=== PATIENT | male | born 1945 | race Hispanic/Latino ===

== ENCOUNTER 2018-01-14 12:55 | Inpatient (IN) | payer OTHER ==
[~2018-01-14] VITALS: Ht 172.7 cm; Wt 87.4 kg
[~2018-01-14 12:55] MED LIST: APIX5TAB PO; ASPI-555 PO; FURO40TA7 PO; GLIP10TA9 PO; LISI-617 PO; METO50TA18 PO; POTA8TAB7 PO; PRAV40TA3 PO; SITA1TAB6 PO
[2018-01-14] MEDS ORDERED: SODIUM CHLORIDE 0.9% 1000ML 1,000 ML IV ONE ×2 (13:43→16:12)
[2018-01-14 13:47] LABS: BASOPHILS % (AUTO) 0.2 % (0.0-5.0); HEMATOCRIT 31.8 % (42-54); LYMPHOCYTES % (AUTO) 4.6 % (21.0-51.0); MEAN CORPUSCULAR HEMOGLOBIN 31.4 pg (27.0-33.0); MEAN CORPUSCULAR HGB CONC 34.3 g/dL (32.0-36.0); MEAN CORPUSCULAR VOLUME 91.6 fL (79-99); MONOCYTES % (AUTO) 0.3 % (3.0-13.0); NEUTROPHILS % (AUTO) 94.9 % (40.0-77.0); PLATELET COUNT (AUTO) 289 K/uL (130-400); RED BLOOD CELL COUNT(AUTO) 3.47 MIL/uL (4.50-6.20); RED CELL DISTRIBUTION WIDTH 18.1 % (11.0-15.5)
[2018-01-14] MEDS ORDERED: MORPHINE SULFATE 2 MG/ML 1ML SYG ONE (13:48)
[2018-01-14 13:58] LABS: WHITE BLOOD COUNT (AUTO) 43.6 K/uL (4.8-10.8)
[2018-01-14 14:04] LABS: ALBUMIN 2.7 g/dL (3.5-5.0); BILIRUBIN,TOTAL 0.3 mg/dL (0.2-1.0); CREATININE 6.4 mg/dL (0.5-1.5); POTASSIUM 4.2 mmol/L (3.5-5.1); TOTAL PROTEIN, SERUM 6.3 g/dL (6.0-8.3)
[2018-01-14 14:24] LABS: BAND NEUTROPHILS % (MANUAL) 4 % (0-2); LYMPHOCYTES % (MANUAL) 4 % (22-44); MAN.DIFF COMMENT-IMPRESSION MANUAL DIFFERENTIAL; MONOCYTES % (MANUAL) 9 % (2-9); SEGMENTED NEUTROPHILS % 83 % (40-70)
[2018-01-14] MEDS: SODIUM CHLORIDE 0.9% 1000ML 1,000 ML IV SCH (14:35)
[2018-01-14] MEDS ORDERED: GUAIFENESIN-DM 200/20 MG 10 ML PO PRN (14:45)
[2018-01-14] MEDS ORDERED: NITROGLYCERIN 0.4 MG SL TAB SL PRN (14:45)
[2018-01-14] MEDS ORDERED: ACETAMINOPHEN-CODEINE 300/30MG TAB PO PRN (14:45)
[2018-01-14] MEDS ORDERED: CEFTRIAXONE 1GM/D5W 50ML 50 ML IV SCH (14:45)
[2018-01-14] MEDS ORDERED: MORPHINE SULFATE 2 MG/ML 1ML SYG IV PRN (14:45)
[2018-01-14] MEDS ORDERED: HYDRALAZINE HCL 20 MG/ML VIAL IV PRN (14:45)
[2018-01-14] MEDS ORDERED: ACETAMINOPHEN 325 MG TAB PO PRN ×2 (14:45)
[2018-01-14] MEDS ORDERED: SODIUM CHLORIDE 0.9% 1000ML 1,000 ML IV SCH (14:45)
[2018-01-14] MEDS ORDERED: LACTULOSE 20 GM/30 ML UDCUP PO PRN (14:45)
[2018-01-14] MEDS ORDERED: MAG HYDROX/AL HYDROX/SIMETH ES 30 ML SUSP UDCUP PO PRN (14:45)
[2018-01-14] MEDS ORDERED: ONDANSETRON HCL 4 MG/2 ML VIAL IV PRN (14:45)
[2018-01-14] MEDS: CEFTRIAXONE SODIUM 1 GM IVP SCH (15:00)
[2018-01-14 19:56] VITALS: BP 89/46
[2018-01-14] MEDS: METRONIDAZOLE 500MG/100ML BAG 100 ML IV SCH (21:14)
[2018-01-14 23:19] VITALS: BP 113/47
[2018-01-15] MEDS: SODIUM CHLORIDE 0.9% 1000ML 1,000 ML IV SCH ×3 (00:35→16:25)
[2018-01-15 03:40] VITALS: BP 125/50
[2018-01-15 04:32] LABS: MEAN CORPUSCULAR HEMOGLOBIN 31.2 pg (27.0-33.0); MEAN CORPUSCULAR HGB CONC 34.1 g/dL (32.0-36.0); MEAN CORPUSCULAR VOLUME 91.5 fL (79-99); NUCLEATED RED BLOOD CELLS 0.1 % (0.0-0.19); PLATELET COUNT (AUTO) 209 K/uL (130-400); RED BLOOD CELL COUNT(AUTO) 2.95 MIL/uL (4.50-6.20); RED CELL DISTRIBUTION WIDTH 17.6 % (11.0-15.5); WHITE BLOOD COUNT (AUTO) 22.8 K/uL (4.8-10.8)
[2018-01-15 04:54] LABS: CREATININE 4.4 mg/dL (0.5-1.5); POTASSIUM 3.5 mmol/L (3.5-5.1)
[2018-01-15] MEDS: METRONIDAZOLE 500MG/100ML BAG 100 ML IV SCH ×3 (06:22→21:05)
[2018-01-15 07:00] VITALS: BP 128/53
[2018-01-15] MEDS: FAMOTIDINE/PF 20 MG/2 ML VIAL IV SCH (08:36)
[2018-01-15] MEDS ORDERED: ENOXAPARIN SODIUM 1 MG/KG SQ SCH (09:00)
[2018-01-15] MEDS ORDERED: ENOXAPARIN SODIUM 80 MG/0.8 ML SQ SCH (09:15)
[2018-01-15] MEDS: ASPIRIN 81 MG EC TAB PO SCH (10:38)
[2018-01-15 11:00] VITALS: BP 96/51
[2018-01-15] MEDS: INSULIN HUMULIN R 100 UNIT/ML 3ML SQ SCH ×3 (11:30→21:00)
[2018-01-15 16:00] VITALS: BP 104/43
[2018-01-15] MEDS: CEFTRIAXONE SODIUM 1 GM IVP SCH (16:25)
[2018-01-15] MEDS: METOPROLOL TARTRATE 25 MG TAB PO SCH (17:37)
[2018-01-15 19:29] VITALS: BP 126/61
[2018-01-15] MEDS: ATORVASTATIN CALCIUM 10 MG TABLET PO SCH (21:05)
[2018-01-15 23:05] VITALS: BP 133/55
[2018-01-16 03:23] VITALS: BP 132/58
[2018-01-16] MEDS: METRONIDAZOLE 500MG/100ML BAG 100 ML IV SCH ×3 (05:14→21:05)
[2018-01-16] MEDS: SODIUM CHLORIDE 0.9% 1000ML 1,000 ML IV SCH (05:41)
[2018-01-16] MEDS: INSULIN HUMULIN R 100 UNIT/ML 3ML SQ SCH ×4 (06:17→21:04)
[2018-01-16 06:54] LABS: HEMATOCRIT 25.6 % (42-54); MEAN CORPUSCULAR HEMOGLOBIN 33.1 pg (27.0-33.0); MEAN CORPUSCULAR HGB CONC 36.2 g/dL (32.0-36.0); MEAN CORPUSCULAR VOLUME 91.6 fL (79-99); PLATELET COUNT (AUTO) 152 K/uL (130-400); RED BLOOD CELL COUNT(AUTO) 2.79 MIL/uL (4.50-6.20); RED CELL DISTRIBUTION WIDTH 17.7 % (11.0-15.5); WHITE BLOOD COUNT (AUTO) 16.5 K/uL (4.8-10.8)
[2018-01-16 07:00] VITALS: BP 135/62
[2018-01-16 07:01] LABS: CREATININE 1.5 mg/dL (0.5-1.5)
[2018-01-16 07:03] LABS: POTASSIUM 2.8 mmol/L (3.5-5.1)
[2018-01-16] MEDS ORDERED: POTASSIUM CHLORIDE 10% ELIXIR 20 MEQ/15 ML UDCUP PO PRN (08:30)
[2018-01-16] MEDS ORDERED: LIDOCAINE HCL-MPF 1% 2ML VIAL IVP PRN (08:30)
[2018-01-16] MEDS: ASPIRIN 81 MG EC TAB PO SCH (09:00)
[2018-01-16] MEDS: METOPROLOL TARTRATE 25 MG TAB PO SCH ×2 (09:36→19:04)
[2018-01-16] MEDS: APIXABAN 5 MG TABLET PO SCH ×2 (09:36→21:04)
[2018-01-16] MEDS: FAMOTIDINE/PF 20 MG/2 ML VIAL IV SCH (09:36)
[2018-01-16 11:00] VITALS: BP 150/56
[2018-01-16] MEDS: MAGNESIUM 2GM PREMIX 50ML 50 ML IV SCH (12:06)
[2018-01-16] MEDS: CEFTRIAXONE SODIUM 1 GM IVP SCH (15:59)
[2018-01-16 16:00] VITALS: BP 152/90
[2018-01-16 19:09] VITALS: BP 146/80
[2018-01-16] MEDS: ATORVASTATIN CALCIUM 10 MG TABLET PO SCH (21:04)
[2018-01-16 23:20] VITALS: BP 146/70
[2018-01-17 03:00] VITALS: BP 116/72
[2018-01-17] MEDS: METRONIDAZOLE 500MG/100ML BAG 100 ML IV SCH ×2 (05:14→13:56)
[2018-01-17 05:59] LABS: MEAN CORPUSCULAR HGB CONC 33.7 g/dL (32.0-36.0); PLATELET COUNT (AUTO) 155 K/uL (130-400); RED BLOOD CELL COUNT(AUTO) 2.93 MIL/uL (4.50-6.20); RED CELL DISTRIBUTION WIDTH 17.8 % (11.0-15.5); WHITE BLOOD COUNT (AUTO) 23.1 K/uL (4.8-10.8)
[2018-01-17 06:19] LABS: POTASSIUM 2.8 mmol/L (3.5-5.1)
[2018-01-17] MEDS: INSULIN HUMULIN R 100 UNIT/ML 3ML SQ SCH ×4 (06:30→21:27)
[2018-01-17] MEDS: POTASSIUM CHLORIDE 20MEQ/100ML 100 ML IV PRN ×3 (06:41→22:49)
[2018-01-17 08:00] VITALS: BP 130/60
[2018-01-17] MEDS ORDERED: PHARMACY COMMUNICATION MISC SCH (08:15)
[2018-01-17] MEDS ORDERED: COMPOUND PO MISCELLANEOUS 1 EACH MISC MISC PRN (08:30)
[2018-01-17] MEDS ORDERED: NON-FORMULARY MEDICATION 1 EACH (Potassium Chloride 8 MEQ) PO SCH (09:00)
[2018-01-17] MEDS ORDERED: POTASSIUM CHLORIDE 8 MEQ PO SCH (09:00)
[2018-01-17] MEDS: METOPROLOL TARTRATE 25 MG TAB PO SCH ×2 (09:24→16:40)
[2018-01-17] MEDS: APIXABAN 5 MG TABLET PO SCH ×2 (09:24→20:58)
[2018-01-17] MEDS: POTASSIUM CHLORIDE 20 MEQ ERTAB PO PRN ×3 (09:25→21:18)
[2018-01-17] MEDS: FAMOTIDINE/PF 20 MG/2 ML VIAL IV SCH (09:25)
[2018-01-17] MEDS: ASPIRIN 81 MG EC TAB PO SCH (09:25)
[2018-01-17] MEDS: VANCOMYCIN 250MG/5ML ORAL SOLUTION 40ML PO SCH ×6 (09:26→20:59)
[2018-01-17 11:49] VITALS: BP 132/67
[2018-01-17 16:00] VITALS: BP 140/97
[2018-01-17] MEDS: MAGNESIUM 2GM PREMIX 50ML 50 ML IV SCH (20:58)
[2018-01-17] MEDS: ATORVASTATIN CALCIUM 10 MG TABLET PO SCH (20:58)
[2018-01-17 23:16] VITALS: BP 144/65
[2018-01-18] VITALS (7 sets, daily range): BP systolic 145–169; BP diastolic 62–85
[2018-01-18] MEDS: POTASSIUM CHLORIDE 20 MEQ ERTAB PO PRN ×5 (00:06→19:47)
[2018-01-18] MEDS: POTASSIUM CHLORIDE 20MEQ/100ML 100 ML IV PRN (01:19)
[2018-01-18] MEDS: VANCOMYCIN 250MG/5ML ORAL SOLUTION 40ML PO SCH ×8 (03:08→19:46)
[2018-01-18 04:45] LABS: HEMATOCRIT 27.3 % (42-54); MEAN CORPUSCULAR HEMOGLOBIN 33.6 pg (27.0-33.0); MEAN CORPUSCULAR HGB CONC 36.2 g/dL (32.0-36.0); MEAN CORPUSCULAR VOLUME 92.6 fL (79-99); PLATELET COUNT (AUTO) 150 K/uL (130-400); RED BLOOD CELL COUNT(AUTO) 2.95 MIL/uL (4.50-6.20); RED CELL DISTRIBUTION WIDTH 17.9 % (11.0-15.5); WHITE BLOOD COUNT (AUTO) 19.2 K/uL (4.8-10.8)
[2018-01-18 04:57] LABS: CREATININE 0.7 mg/dL (0.5-1.5); MAGNESIUM 1.5 mg/dL (1.80-2.40); PHOSPHORUS 1.4 mg/dL (2.5-4.9); POTASSIUM 3.4 mmol/L (3.5-5.1)
[2018-01-18] MEDS: INSULIN HUMULIN R 100 UNIT/ML 3ML SQ SCH ×4 (06:35→20:27)
[2018-01-18] MEDS: MAGNESIUM 2GM PREMIX 50ML 50 ML IV SCH ×2 (06:38→19:45)
[2018-01-18] MEDS ORDERED: POTASSIUM PHOS 15 mMOL+NS250ML 250 ML IV SCH (08:00)
[2018-01-18] MEDS: FAMOTIDINE/PF 20 MG/2 ML VIAL IV SCH (08:19)
[2018-01-18] MEDS: APIXABAN 5 MG TABLET PO SCH ×2 (08:19→19:47)
[2018-01-18] MEDS: METOPROLOL TARTRATE 25 MG TAB PO SCH (08:19)
[2018-01-18] MEDS: ASPIRIN 81 MG EC TAB PO SCH (08:19)
[2018-01-18] MEDS: **HM** JANUMET 50-1000MG PO SCH (16:30)
[2018-01-18] MEDS: METOPROLOL TARTRATE 50 MG TAB PO SCH (17:50)
[2018-01-18 18:23] LABS: MAGNESIUM 1.5 mg/dL (1.80-2.40); POTASSIUM 3.5 mmol/L (3.5-5.1)
[2018-01-18] MEDS: ATORVASTATIN CALCIUM 10 MG TABLET PO SCH (19:47)
[2018-01-19] MEDS: VANCOMYCIN 250MG/5ML ORAL SOLUTION 40ML PO SCH ×8 (03:48→21:20)
[2018-01-19 04:10] LABS: BASOPHILS % (AUTO) 0.2 % (0.0-5.0); EOSINOPHILS % (AUTO) 0.1 % (0.0-8.0); HEMATOCRIT 28.5 % (42-54); LYMPHOCYTES % (AUTO) 7.2 % (21.0-51.0); MEAN CORPUSCULAR HEMOGLOBIN 31.4 pg (27.0-33.0); MEAN CORPUSCULAR HGB CONC 33.9 g/dL (32.0-36.0); MEAN CORPUSCULAR VOLUME 92.5 fL (79-99); MONOCYTES % (AUTO) 4.5 % (3.0-13.0); NUCLEATED RED BLOOD CELLS 0.1 % (0.0-0.19); PLATELET COUNT (AUTO) 141 K/uL (130-400); RED BLOOD CELL COUNT(AUTO) 3.08 MIL/uL (4.50-6.20); RED CELL DISTRIBUTION WIDTH 18.5 % (11.0-15.5); WHITE BLOOD COUNT (AUTO) 19.8 K/uL (4.8-10.8)
[2018-01-19 04:16] VITALS: BP 162/75
[2018-01-19] MEDS: **HM** JANUMET 50-1000MG PO SCH ×2 (04:50→17:35)
[2018-01-19 05:06] LABS: CREATININE 0.8 mg/dL (0.5-1.5); MAGNESIUM 1.5 mg/dL (1.80-2.40); PHOSPHORUS 2.1 mg/dL (2.5-4.9); POTASSIUM 3.6 mmol/L (3.5-5.1)
[2018-01-19] MEDS: MAGNESIUM 2GM PREMIX 50ML 50 ML IV SCH ×3 (05:36→21:18)
[2018-01-19] MEDS: POTASSIUM CHLORIDE 20 MEQ ERTAB PO PRN ×2 (05:37→09:44)
[2018-01-19] MEDS: INSULIN HUMULIN R 100 UNIT/ML 3ML SQ SCH ×4 (05:46→21:29)
[2018-01-19 07:30] VITALS: BP 139/53
[2018-01-19] MEDS ORDERED: POTASSIUM PHOS 15 mMOL+NS250ML 250 ML IV SCH (08:30)
[2018-01-19] MEDS ORDERED: MAGNESIUM 2GM PREMIX 50ML 50 ML IV SCH (08:30)
[2018-01-19] MEDS: APIXABAN 5 MG TABLET PO SCH ×2 (09:42→21:17)
[2018-01-19] MEDS: FAMOTIDINE/PF 20 MG/2 ML VIAL IV SCH (09:42)
[2018-01-19] MEDS: ASPIRIN 81 MG EC TAB PO SCH (09:42)
[2018-01-19] MEDS: METOPROLOL TARTRATE 50 MG TAB PO SCH ×2 (09:43→17:36)
[2018-01-19] MEDS: POTASSIUM CHLORIDE 10 MEQ/TAB.SA PO SCH (09:47)
[2018-01-19] MEDS: LISINOPRIL 5 MG TABLET PO SCH ×2 (09:47→21:17)
[2018-01-19 11:00] VITALS: BP 123/84
[2018-01-19 16:00] VITALS: BP 132/62
[2018-01-19 19:00] VITALS: BP 151/60
[2018-01-19 20:41] LABS: MAGNESIUM 1.8 mg/dL (1.80-2.40); POTASSIUM 4.3 mmol/L (3.5-5.1)
[2018-01-19] MEDS: ATORVASTATIN CALCIUM 10 MG TABLET PO SCH (21:17)
[2018-01-19 23:00] VITALS: BP 181/75
[2018-01-20] MEDS: VANCOMYCIN 250MG/5ML ORAL SOLUTION 40ML PO SCH ×4 (02:42→08:21)
[2018-01-20 03:00] VITALS: BP_SYST 136; BP_SYST 163; BP_DIAS 76
[2018-01-20 04:21] LABS: HEMATOCRIT 24.7 % (42-54); MEAN CORPUSCULAR HEMOGLOBIN 31.9 pg (27.0-33.0); MEAN CORPUSCULAR HGB CONC 33.9 g/dL (32.0-36.0); MEAN CORPUSCULAR VOLUME 94.1 fL (79-99); NUCLEATED RED BLOOD CELLS 0.1 % (0.0-0.19); PLATELET COUNT (AUTO) 157 K/uL (130-400); RED BLOOD CELL COUNT(AUTO) 2.62 MIL/uL (4.50-6.20); RED CELL DISTRIBUTION WIDTH 18.6 % (11.0-15.5); WHITE BLOOD COUNT (AUTO) 22.4 K/uL (4.8-10.8)
[2018-01-20 04:28] LABS: CREATININE 0.8 mg/dL (0.5-1.5); MAGNESIUM 1.9 mg/dL (1.80-2.40); POTASSIUM 3.7 mmol/L (3.5-5.1)
[2018-01-20 04:37] LABS: B-TYPE NATRIURETIC PEPTIDE 1710 pg/mL (0-100)
[2018-01-20] MEDS: MAGNESIUM 2GM PREMIX 50ML 50 ML IV SCH (05:58)
[2018-01-20] MEDS: INSULIN HUMULIN R 100 UNIT/ML 3ML SQ SCH ×2 (05:59→11:30)
[2018-01-20] MEDS: **HM** JANUMET 50-1000MG PO SCH ×2 (07:30→08:36)
[2018-01-20 08:00] VITALS: BP 154/68
[2018-01-20] MEDS: APIXABAN 5 MG TABLET PO SCH (08:22)
[2018-01-20] MEDS: POTASSIUM CHLORIDE 10 MEQ/TAB.SA PO SCH (08:22)
[2018-01-20] MEDS: LISINOPRIL 5 MG TABLET PO SCH (08:24)
[2018-01-20] MEDS: FAMOTIDINE/PF 20 MG/2 ML VIAL IV SCH (08:24)
[2018-01-20] MEDS: METOPROLOL TARTRATE 50 MG TAB PO SCH (08:24)
[2018-01-20] MEDS: ASPIRIN 81 MG EC TAB PO SCH (08:24)
[2018-01-20] MEDS ORDERED: FUROSEMIDE 20 MG TABLET PO SCH ×2 (09:00)
[2018-01-20] MEDS ORDERED: HEPARIN SODIUM/PF 100UNIT/ML 5ML SYRINGE IV SCH (09:45)
[2018-02-27] MEDS ORDERED: FERR-82 PO (04:06)
[2018-02-27] MEDS ORDERED: OMEG-125 PO (04:06)
[2018-02-27] MEDS ORDERED: CYAN50003 PO (04:06)
[2018-02-27] MEDS ORDERED: LEVO500T2 PO (09:03)
== END 2018-01-20 12:00 | DRG 872 ==
LOC: EDH 12:55 → EDHIP 14:00 → OBSVTOIN 14:00 → 3CH 19:32
PROVIDERS: ADMIT Internal Medicine; ATTEND Internal Medicine
DX: A41.9 Sepsis, unspecified organism (principal); N17.9 Acute kidney failure, unspecified; A04.72 Enterocolitis due to Clostridium difficile, not specified as recurrent; I48.91 Unspecified atrial fibrillation; E83.42 Hypomagnesemia; C76.0 Malignant neoplasm of head, face and neck; E86.0 Dehydration; I11.0 Hypertensive heart disease with heart failure; I50.22 Chronic systolic (congestive) heart failure; I48.92 Unspecified atrial flutter; E11.9 Type 2 diabetes mellitus without complications; E66.9 Obesity, unspecified; I25.10 Atherosclerotic heart disease of native coronary artery without angina pectoris; E78.5 Hyperlipidemia, unspecified; E87.6 Hypokalemia; Z79.01 Long term (current) use of anticoagulants; Z95.1 Presence of aortocoronary bypass graft; Z87.891 Personal history of nicotine dependence; Z51.11 Encounter for antineoplastic chemotherapy; Z68.29 Body mass index [BMI] 29.0-29.9, adult
CPT/HCPCS: 36415; 70450; 72100; 73562; 76770; 80048; 80053; 82270; 82948; 83735; 83880; 84100; 84132; 85007; 85025; 85027; 87040; 87046; 87088; 87177; 87205; 87507; 88313; 97039; A4218; A6250; J0360; J0696; J1642; J1650; J1815; J3370; J3475; J3480; J3490; J7030